=== PATIENT | female | born 1990 ===

== ENCOUNTER 2019-04-17 23:51 | Inpatient (IN) ==
[2019-04-18] MEDS: LACTATED RINGER'S 1,000 ML IV PRN ×2 (00:30→02:14)
[2019-04-18] MEDS ORDERED: BUTORPHANOL TARTRATE 1 MG/ML VIAL ONE (00:41)
[2019-04-18] MEDS ORDERED: PENICILLIN G POTASSIUM 6 MU in DEXTROSE 5% 250 ML IV STA ×2 (00:49→00:55)
[2019-04-18] MEDS ORDERED: BUTORPHANOL TARTRATE 1 MG/ML VIAL IV PRN ×2 (00:51→00:55)
[2019-04-18] MEDS ORDERED: PENICILLIN G POTASSIUM 3 MU in DEXTROSE 5% 100 ML IV PRN ×2 (00:52→00:55)
[2019-04-18] MEDS ORDERED: LACTATED RINGER'S 1,000 ML IV PRN (00:55)
[2019-04-18] MEDS ORDERED: OXYTOCIN 30 UNITS/500 ML BAG IV PRN ×2 (00:55→09:13)
--- NOTE | 2019-04-18 00:58 | History & Physical Report ---
Date of Service April 18, 2019 Assessment & Plan (1) IUGR (intrauterine growth restriction): (2) Diet controlled gestational diabetes mellitus: (3) Encounter for supervision in primigravida, antepartum: Admit to L&D, EFM/toco, IV fluids, labs. Elevated BPs on arrival - suspect due to pain, as has had normal BPs in , but will obtain preeclampsia panel to r/o. Pen G for GBS+ OK for dose of Stadol now, will consult anesthesia for epidural. History of Present Illness Chief Complaint: labor Primary Care Provider: NO PCP 28yo @ 38 05/15 presents after spontaneous rupture of membranes for clear fluid at 10pm. She is also having contractions every 2 minutes. She is extremely uncomfortable, moaning in pain. is complicated by GDMA1, IUGR, GBS+, difficulty tolerating pelvic exams. She desires epidural. Allergies Allergy/AdvReac Type Severity Reaction Status Date / Time No Known Allergies Allergy Verified 04/18/19 00:19 Home Medications Home Medications Medication Instructions Recorded Confirmed Type cholecalciferol (vitamin D3) 25 1,000 units PO DAILY 01/08/19 04/16/19 History mcg (1,000 unit) capsule calcium carbonate PO 02/26/19 04/16/19 History ferrous sulfate PO 02/26/19 04/16/19 History prenat.vits,boubacar,[id number] PO 02/26/19 04/16/19 History acetone (urine) test #50 ea 03/05/19 04/16/19 Rx blood sugar diagnostic #100 ea 03/05/19 04/16/19 Rx blood-glucose meter #1 ea 03/05/19 04/16/19 Rx Patient History Social History Preferred Language: Trinidadian Manager Social Required: No Beliefs That Will Affect Care: None Current Living Situation: Spouse Smoking Status: Never smoker Review of Systems All systems reviewed & are unremarkable except as noted in HPI & below Physical Exam Constitutional: WD/WN, vitals as above Respiratory: normal respiratory effort, lungs clear to auscultation no respiratory distress Cardiovascular: Rate/Rhythm: regular rate and regular rhythm Gastrointestinal (Abdomen): Inspection/Auscultation: abdomen normal to inspection Percussion/Palpation: abdomen soft; abdomen nontender Gravid. No s/s chorio or abruption. Skin: no rashes, warm and dry Psychiatric: A+Ox3, euthymic affect Results & Data Vital Signs (Past 12 Hours) Vital Signs Pulse BP Pulse Ox 04/18/19 00:54 102 H 98 04/18/19 00:49 109 H 100 04/18/19 00:45 113 H 146/97 H 04/18/19 00:44 110 H 100 04/18/19 00:27 111 H 164/111 H 04/18/19 00:11 111 H 164/111 H 04/18/19 00:06 101 H 165/102 H Monitoring External Monitor FHT Cat 1 Tocodynamometer Q2 Coding Level of Care Code None Diagnoses IUGR (intrauterine growth restriction) Diet controlled gestational diabetes mellitus O24.410 Encounter for supervision in primigravida, antepartum Z34.00
[2019-04-18] MEDS ORDERED: fentaNYL citrate 100 MCG/2 ML VIAL ONE (01:22)
[2019-04-18] MEDS ORDERED: ePHEDrine sulfate 50 MG/ML AMP ONE (01:22)
[2019-04-18] MEDS ORDERED: BUPIVACAINE 0.25% 30 ML VIAL ONE (01:23)
[2019-04-18] MEDS ORDERED: fentaNYL 2MCG/ML ROPIV 1.25MG/ML 100 ML BAG EPI ONE (01:23)
[2019-04-18 01:31] LABS: Hematocrit (blood only) 35.9 % (37-47); Hemoglobin 11.5 g/dL (12.0-16.0); Mean Corpuscular Hemoglobin 26.7 pg (25-34); Mean Corpuscular Volume 83.5 fL (80-100); Mean Platelet Volume 10.8 fL (7.4-10.4); Platelet Count 236 K/uL (130-400); White Blood Count 11.68 K/uL (4.8-10.8)
[2019-04-18] MEDS ORDERED: NALOXONE HCL 1 MG in SODIUM CHLORIDE 0.9% 1000ML 1,000 ML IV PRN (01:48)
[2019-04-18] MEDS ORDERED: NALBUPHINE HCL INJ 10 MG/ML AMP IV PRN (01:48)
[2019-04-18] MEDS ORDERED: DiphenhydrAMINE HCL 50 MG/ML VIAL IV PRN (01:48)
[2019-04-18] MEDS ORDERED: ePHEDrine sulfate 50 MG/ML AMP IV PRN (01:48)
[2019-04-18] MEDS ORDERED: fentaNYL 2MCG/ML ROPIV 1.25MG/ML 100 ML BAG EPI PRN (01:48)
[2019-04-18] MEDS ORDERED: NALOXONE HCL 0.4 MG/1 ML VIAL/CARP IV PRN (01:48)
[2019-04-18] MEDS ORDERED: ONDANSETRON INJ 2 MG/ML 2 ML VIAL IV PRN (01:48)
[2019-04-18 01:49] LABS: Albumin Level 2.7 gm/dl (3.4-5.0); BUN Creatinine Ratio 16.4 (10-20); Calcium 8.8 mg/dl (8.5-10.1); Creatinine Clr Calc Pharmacy 107.3 ml/min; Est GFR (African American) 144.8; Est GFR (Non-African American) 124.9; Potassium 3.7 mmol/L (3.5-5.1)
[2019-04-18 01:52] LABS: Albumin Globulin Ratio 0.6 (0.9-2); Bilirubin,Total 0.1 mg/dl (0.2-1); Globulin 4.7 gm/dl (2.5-4.0); Total Protein 7.4 gm/dl (6.4-8.2)
--- NOTE | 2019-04-18 01:55 | Anesthesiology Consultation ---
Date of Service April 18, 2019 Assessment & Plan Chart Review Chart Review: Patient NOT seen in Pre Admission Testing and Acceptable Risk for Labor Epidural Consults Requested none ASA ASA2 Proposed Anesthesia Anesthesia Type: Labor Epidural and CSE Risk / Benefits Reviewed With: PT / POA / Parent / Guardian, Accepts Plan and Informed Consent Obtained History Height/Weight Height: 4 ft 11 in Weight: 55.868 kg Allergies Allergy/AdvReac Type Severity Reaction Status Date / Time No Known Allergies Allergy Verified 04/18/19 00:19 Medications Home Medications Medication Instructions Recorded Confirmed Last Taken cholecalciferol (vitamin D3) 25 1,000 units PO DAILY 01/08/19 04/16/19 Unknown mcg (1,000 unit) capsule calcium carbonate PO 02/26/19 04/16/19 Unknown ferrous sulfate PO 02/26/19 04/16/19 Unknown prenat.vits,boubacar,[id number]-wdjx-[id number] PO 02/26/19 04/16/19 Unknown acetone (urine) test #50 ea 03/05/19 04/16/19 Unknown blood sugar diagnostic #100 ea 03/05/19 04/16/19 Unknown blood-glucose meter #1 ea 03/05/19 04/16/19 Unknown Active Medications Generic Name Dose Route Start Last Admin Trade Name Freq PRN Reason Stop Dose Admin Lactated Ringer's 1,000 mls @ 125 mls/hr 04/18/19 00:51 04/18/19 00:30 Lr IV 05/18/19 00:50 999 mls/hr .Q8H PRN Administration L&D Protocol Protocol NPO Date Last Intake of Fluids: 04/17/19 Time Last Intake of Fluids: 21:30 Date Last Intake of Solids: 04/18/19 Time Last Intake of Solids: 20:30 Exercise / Class Metabolic Activity II 4-5 Yardwork/Stairs/Walk up hill Past Family History Family History Other No pertinent family history Past Surgical History Surgical History No pertinent past surgical history Past Anesthesia History No Hx of Anesthesia Complications and No Family Hx of Anesthesia Complications History of PONV No Hx of PONV and No Hx of Motion Sickness Social History Smoking Status: Never smoker Hx Alcohol Use: No Hx Substance Use: No Review of Systems no chest pain or sob Physical Exam Vital Signs Last Vital Signs Temp 36.8 C 04/18/19 00:27 Pulse 116 H 04/18/19 01:49 BP 146/97 H 04/18/19 00:45 Pulse Ox 100 04/18/19 01:49 ENMT Mouth: no TMJ abnormality Thyromental Distance: > or= 3.5 Finger Breadths Mallampati Class: II Neck normal visual inspection Respiratory normal respiratory effort Auscultation: lungs clear to auscultation bilaterally Cardiovascular Rate/Rhythm: regular rate and regular rhythm Musculoskeletal Spine: normal cervical ROM Neurologic moves all extremities Psychiatric Orientation: alert and oriented x 3 Testing Laboratory Results 04/18/19 01:05 04/18/19 01:05
--- NOTE | 2019-04-18 07:25 | Obstetrical Progress Note ---
Date of Service April 18, 2019 Subjective Feeling pressure with contractions. FHT 150-160s, mod nadira. +accels, occ variable decels SVE complete/+1 Anticipate , will start pushing. Results & Data Vital Signs (Past 12 Hours) Vital Signs Temp Pulse Resp BP Pulse Ox 04/18/19 07:23 155 H 136/78 04/18/19 07:19 173 H 99 04/18/19 07:14 170 H 98 04/18/19 07:09 129 H 100 04/18/19 07:08 133 H 124/78 04/18/19 07:04 37.6 C H 121 H 22 100 04/18/19 06:59 134 H 100 04/18/19 06:54 121 H 134/80 100 04/18/19 06:49 118 H 100 04/18/19 06:44 124 H 100 04/18/19 06:39 117 H 129/84 100 04/18/19 06:34 118 H 100 04/18/19 06:29 113 H 100 04/18/19 06:24 113 H 99 04/18/19 06:23 108 H 119/67 04/18/19 06:22 37.3 C 18 04/18/19 06:19 105 H 98 04/18/19 06:14 111 H 99 04/18/19 06:09 115 H 99 04/18/19 06:08 126 H 112/76 04/18/19 06:04 113 H 99 04/18/19 05:59 123 H 99 04/18/19 05:54 121 H 100 04/18/19 05:53 113 H 18 124/85 04/18/19 05:49 124 H 100 04/18/19 05:44 111 H 99 04/18/19 05:39 125 H 124/82 100 04/18/19 05:34 121 H 100 04/18/19 05:29 114 H 99 04/18/19 05:24 125 H 100 04/18/19 05:23 118 H 122/83 04/18/19 05:19 126 H 99 04/18/19 05:14 116 H 99 04/18/19 05:10 37.3 C 16 04/18/19 05:09 120 H 117/81 99 04/18/19 05:04 115 H 100 04/18/19 04:59 118 H 100 04/18/19 04:54 128 H 131/78 100 04/18/19 04:49 131 H 99 04/18/19 04:44 132 H 100 04/18/19 04:39 120 H 113/77 99 04/18/19 04:34 106 H 98 04/18/19 04:29 118 H 99 04/18/19 04:24 112 H 114/75 99 04/18/19 04:19 109 H 99 04/18/19 04:14 124 H 100 04/18/19 04:09 109 H 123/77 100 04/18/19 04:04 121 H 100 04/18/19 03:59 106 H 100 04/18/19 03:54 131 H 100 04/18/19 03:53 117 H 112/74 04/18/19 03:49 112 H 100 04/18/19 03:44 116 H 100 04/18/19 03:39 120 H 114/76 100 04/18/19 03:34 116 H 100 04/18/19 03:29 119 H 100 04/18/19 03:24 118 H 100 04/18/19 03:19 113 H 100 04/18/19 03:14 113 H 100 04/18/19 03:11 100 H 138/85 04/18/19 03:10 36.6 C 18 04/18/19 03:09 114 H 100 04/18/19 03:04 115 H 99 04/18/19 02:59 129 H 100 04/18/19 02:54 130 H 100 04/18/19 02:49 114 H 100 04/18/19 02:44 117 H 100 04/18/19 02:39 127 H 100 04/18/19 02:34 126 H 100 04/18/19 02:29 127 H 100 04/18/19 02:26 131 H 125/69 04/18/19 02:25 36.6 C 18 04/18/19 02:24 129 H 100 04/18/19 02:19 127 H 124/81 100 04/18/19 02:14 132 H 100 04/18/19 02:13 146 H 119/70 04/18/19 02:10 120 H 134/78 04/18/19 02:09 115 H 100 04/18/19 02:07 120 H 154/97 H 04/18/19 02:04 116 H 99 04/18/19 01:59 129 H 100 04/18/19 01:54 133 H 100 04/18/19 01:49 116 H 100 04/18/19 01:44 110 H 100 04/18/19 01:39 112 H 100 04/18/19 01:34 110 H 100 04/18/19 01:29 116 H 100 04/18/19 01:24 104 H 99 04/18/19 01:19 117 H 99 04/18/19 01:14 104 H 99 04/18/19 01:10 36.8 C 04/18/19 01:09 110 H 99 04/18/19 01:04 111 H 99 04/18/19 00:59 104 H 99 04/18/19 00:54 102 H 98 04/18/19 00:49 109 H 100 04/18/19 00:45 113 H 146/97 H 04/18/19 00:44 110 H 100 04/18/19 00:27 36.8 C 111 H 164/111 H 04/18/19 00:11 111 H 164/111 H 04/18/19 00:06 101 H 165/102 H PG Care Time/CCT Total # of Minutes Spent Total Time Spent with Patient: Total time spent is greater than 50% in coordination of care (as documented) at patient's floor/unit and/or counseling patient: Coding Level of Care Code None
[2019-04-18] MEDS: OXYTOCIN 30 UNITS/500 ML BAG IV PRN ×2 (07:50→08:20)
--- NOTE | 2019-04-18 08:51 | Delivery Summary ---
Vaginal Delivery Summary Date of Service April 18, 2019 Vaginal Delivery Summary Vaginal Delivery Summary: Pre-delivery diagnoses: 28yo @ 38 3/7, spontaneous labor, GDMA1, IUGR, GBS+ Post-delivery diagnoses: same Procedure: spontaneous vaginal delivery, repair of 2nd degree perineal laceration Surgeon: Soni Stafford DO Complications: none Findings: Viable female . Apgars: 8/9. Weight pending, please see nursery records Estimated blood loss: 300ml Description of delivery: The patient progressed to complete with epidural anesthesia. She then began to push. She spontaneously vaginally delivered a viable from the cephalic presentation. The head delivered in CURTIS position. The anterior shoulder delivered, followed by the posterior shoulder, followed by the body. The baby was placed on mother's abdomen and a spontaneous cry was heard. The cord was doubly clamped and cut. A segment was retained for cord gases. Cord blood was obtained. The placenta was delivered spontaneously intact with a 3-vessel cord. The uterus and vagina were swept of clots and debris. IV pitocin was given. The uterus became firm. The cervix, vagina, and perineum were inspected and a 2nd degree and right vaginal lacerations were noted. Lidocaine injected for local anesthesia. These were repaired in standard fashion with 3-0 vicryl. Excellent hemostasis was observed. The mother and baby are recovering in stable and good condition in the room. Sponge, needle and instrument counts were correct x 2. Soni Stafford DO [facility] Vaginal Delivery Charge Vaginal Delivery Codes: 69726 global code for the antepartum, delivery, and post-
[2019-04-18] MEDS ORDERED: OXYCODONE/ACETAMINOPHEN 5mg/325mg TAB PO PRN (09:13)
[2019-04-18] MEDS ORDERED: SUPERCREAM 0.870% 15 GM JAR EXT PRN (09:13)
[2019-04-18] MEDS ORDERED: BENZOCAINE 20% AER SPR 82.5 GM CAN EXT PRN (09:13)
[2019-04-18] MEDS ORDERED: bisacodyL 10 MG SUPP PR PRN (09:13)
[2019-04-18] MEDS ORDERED: IBUPROFEN 600 MG TAB PO PRN (09:13)
[2019-04-18] MEDS ORDERED: ACETAMINOPHEN 325 MG TAB PO PRN (09:13)
[2019-04-18] MEDS ORDERED: HYDROCORTISONE ACETATE 25 MG SUPP PR PRN (09:13)
[2019-04-18] MEDS ORDERED: DIPHTHERIA/TETANUS/PERTUSSIS 0.5 ML SYR/VIAL IM ONE (09:13)
[2019-04-18] MEDS ORDERED: IBUPROFEN 200 MG/10 ML UDC PO PRN (10:21)
[2019-04-18] MEDS ORDERED: DOCUSATE SODIUM SYRUP 100 MG/10 ML UDC PO PRN (10:21)
[2019-04-18] MEDS ORDERED: ACETAMINOPHEN SOL 650 MG/20.3 ML UDC PO PRN (10:21)
--- NOTE | 2019-04-18 14:42 | Anesthesia Procedure Note ---
Date of Service April 18, 2019 Anesthesia Post Epidural Note Vital Signs Vital Signs: Temp Pulse Resp BP Pulse Ox 36.8 C 81 18 128/79 100 04/18/19 12:44 04/18/19 12:44 04/18/19 12:44 04/18/19 12:44 04/18/19 08:14 Notes Mental Status: alert / awake / arousable and participated in evaluation Nausea / Vomiting: adequately controlled Pain: adequately controlled Airway Patency, RR, SpO2: stable & adequate BP & HR: stable & adequate Hydration State: stable & adequate Neuraxial Anesthesia: was administered and sensory block is resolving Anesthetic Complications: no major complications apparent and Pt Satisfied with anesthetic care Epidural: Removed without complications and With tip intact
[2019-04-18] MEDS ORDERED: DOCUSATE SODIUM 100 MG CAP PO SCH (21:00)
[2019-04-19 06:12] LABS: Hematocrit (blood only) 30.5 % (37-47); Hemoglobin 9.7 g/dL (12.0-16.0)
[2019-04-19] MEDS ORDERED: PRENATAL VITAMIN 1 TAB PO SCH (08:00)
--- NOTE | 2019-04-19 08:53 | Obstetrical Progress Note ---
Date of Service April 19, 2019 Assessment & Plan (1) IUGR (intrauterine growth restriction): baby doing well. Closely monitoring weight. Will need to carefully monitor breast feeding today. (2) Vaginal delivery: Doing well PP. Routine care. Possible d/c tomorrow. Day #:: 1 Subjective Ambulation: ambulating normally Voiding: no voiding problems Passing Gas:: Yes Diet Tolerance:: regular diet Lochia:: Small Feeding Type:: breast feeding Physical Exam Constitutional WD/WN, vitals as above Cardiovascular Extremities: + edema (trace) Gastrointestinal (Abdomen) Inspection/Auscultation: abdomen not distended Percussion/Palpation: abdomen soft; abdomen nontender fundus firm at u Psychiatric A+Ox3, euthymic affect Results & Data Vital Signs (Past 12 Hours) Vital Signs Temp Pulse Resp BP Pulse Ox 04/19/19 04:15 36.7 C 87 18 136/88 04/18/19 23:30 36.7 C 93 H 18 122/81 98
[2019-04-19] MEDS: MULTI VIT W/MINERALS LIQUID 15 ML UDP PO SCH (18:54)
[2019-04-19] MEDS ORDERED: bisacodyL 5 MG TABEC PO SCH (20:00)
--- NOTE | 2019-04-20 06:16 | Obstetrical Progress Note ---
Date of Service <Clyde Buenrostro DO - Last Filed: 04/20/19 06:17> April 20, 2019 Assessment & Plan <Clyde Buenrostro DO - Last Filed: 04/20/19 06:17> (1) Vaginal delivery: -PPD#2 -Vitals reviewed, WNL (Tmax 37.2) - GBS +, Blood Type B+ - Clinically stable. - Feels well today. Eating well, voiding well, ambulating well. - Pain well controlled. - Routine post- care - After discharge will have [address] Stafford. Day #:: 2 Subjective <Clyde Buenrostro DO - Last Filed: 04/20/19 06:17> Ambulation: ambulating normally Voiding: no voiding problems Passing Gas:: Yes Diet Tolerance:: regular diet Lochia:: Moderate Feeding Type:: breast feeding (breast and bottle feeding ) Current Pain Level(1-10): 3 (not requiring analgesics) Patient is a 28 PPD#2. Patient states that she is feeling well today and that her pain is well controlled. She has no other complaints at this time. Inquires about a breast pump script for insurance purposes. Constitutional: no fever and no chills Respiratory: no cough, no dyspnea and no wheezing Cardiovascular: no chest pain, no dyspnea, no palpitations, no edema and no calf pain Breast: + breast pain (nipple pain with feeding) Gastrointestinal: no abdominal pain, no nausea and no vomiting Genitourinary (female): no dysuria and no difficulty urinating Neurologic: no headache(s) Physical Exam <DO Edmond Kendrick Last Filed: 04/20/19 06:17> Constitutional WD/WN, vitals as above Respiratory normal respiratory effort, lungs clear to auscultation Cardiovascular Rate/Rhythm: regular rate and regular rhythm Heart Sounds: normal S1 and normal S2; no click, no gallop, no murmur and no cardiac rub Extremities: no calf tenderness and no edema Gastrointestinal (Abdomen) Inspection/Auscultation: abdomen normal to inspection and normal bowel sounds Percussion/Palpation: + abdomen tender (slight ttp lower quadrants b/l ) and abdomen soft Genitourinary OB Exam Abdomen: + fundal height Fundus: + firm and + relation to umbilicus (1cm below); not tender and not boggy Results & Data <Clyde Buenrostro DO - Last Filed: 04/20/19 06:17> Vital Signs (Past 12 Hours) Vital Signs Temp Pulse Resp BP Pulse Ox 04/19/19 23:10 36.6 C 92 H 16 131/91 04/19/19 20:30 37.2 C 99 H 16 133/84 98 <Alanna Daly MD, FACOG - Last Filed: 04/20/19 06:57> Co-Signing Physician Notes Resident Physician Supervision Note: I interviewed and examined the patient. Discussed with Dr. Buenrostro and agree with findings and plan as documented in the note. Any exceptions or clarifications are listed here: Doing well. Plan d/c today. f/u 6 weeks . Instructions reviewed. Documented By: Alanna Daly MD, FACOG Resident Activity Tracking <Clyde Buenrostro DO - Last Filed: 04/20/19 06:17> Resident Involvement: Resident Care Provided Care Provided: OB Delivery
[2019-04-20] MEDS: MULTI VIT W/MINERALS LIQUID 15 ML UDP PO SCH (11:09)
== END 2019-04-20 13:05 | disposition home or self-care (01) | DRG 807 ==
LOC: OPB 23:51 → 4S1 23:56 → 4S2 04-18 12:34 → 4S1 04-19 09:52 → 4S2 04-19 09:55